=== PATIENT | male | born 1955 | race Two or more races ===

== ENCOUNTER 2023-03-02 09:08 | Emergency (ER) | payer OTHER, MEDICAID ==
[~2023-03-02] VITALS: Ht 182.9 cm; Wt 90.9 kg
[2023-03-02 09:45] VITALS: BP 142/84; PULSE 110; RESP 18; TEMP 99.2; O2SAT 99
[2023-03-02] MEDS ORDERED: CLIN300C70 PO (10:03)
[2023-03-02] MEDS ORDERED: TRIA0.1O TOP (10:03)
[2023-03-02] MEDS ORDERED: HYDR50CA PO (10:03)
[2023-03-02] MEDS ORDERED: PRED20TA2 PO (10:03)
[2023-03-02] MEDS ORDERED: TAMS-35 PO ×3 (10:18→10:20)
== END 2023-03-02 10:22 | disposition home or self-care (01) ==
LOC: EDBD 09:08 → ER 09:08
DX: L25.9 Unspecified contact dermatitis, unspecified cause (principal); I10 Essential (primary) hypertension; Z79.2 Long term (current) use of antibiotics; Z79.899 Other long term (current) drug therapy; Z88.0 Allergy status to penicillin; Z88.5 Allergy status to narcotic agent